=== PATIENT | female | born 1995 | race American Indian/Alaskan Native ===

== ENCOUNTER 2018-05-20 01:45 | Outpatient (CLI) | payer MEDICAID ==
[2018-05-20 02:11] VITALS: BP 117/61
[2018-05-20] MEDS ORDERED: LACTATED RINGERS 500 ML IV ONE (02:20)
[2018-05-20 02:35] LABS: Amorphous Crystals,Urine Few; Bacteria,Urine 1+ /HPF (Negative); Bilirubin,Urine NEG (Negative); Blood,Urine NEG (Negative); Calcium Oxalate Crystals,Urine 1+; Color,Urine Yellow (Yellow); Mucus,Urine FEW /HPF; RBC,Urine < 1.0 /HPF (0.0-6.0)
== END 2018-05-20 04:12 | disposition home or self-care (01) ==
LOC: TRG 01:45
PROVIDERS: ATTEND Obstetrics & Gynecology
DX: O26.893 Other specified pregnancy related conditions, third trimester (principal); R10.9 Unspecified abdominal pain; R53.1 Weakness; Z3A.30 30 weeks gestation of pregnancy
CPT/HCPCS: 59025; 81001

== ENCOUNTER 2018-08-07 23:17 | Outpatient (CLI) | payer MEDICAID ==
[2018-08-08 00:02] VITALS: BP 119/67
[2018-08-08 00:51] LABS: Amorphous Crystals,Urine Few; Bacteria,Urine 1+ /HPF (Negative); Bilirubin,Urine NEG (Negative); Blood,Urine NEG (Negative); Color,Urine Yellow (Yellow); Mucus,Urine FEW /HPF; Protein,Urine <15 mg/dL mg/dL (Negative)
[2018-08-08] MEDS ORDERED: TYLENOL PO ONE (00:57)
== END 2018-08-08 | disposition home or self-care (01) ==
LOC: TRG 23:17
PROVIDERS: ATTEND Obstetrics & Gynecology
DX: O26.893 Other specified pregnancy related conditions, third trimester (principal); R10.9 Unspecified abdominal pain; M54.9 Dorsalgia, unspecified; Z3A.36 36 weeks gestation of pregnancy
CPT/HCPCS: 81001

== ENCOUNTER 2018-08-30 01:14 | Inpatient (IN) | payer MEDICAID ==
[2018-08-30] MEDS ORDERED: NITRATEST PAPER MC ONE (01:43)
--- NOTE | 2018-08-30 02:19 | History and Physical Report ---
History of Present Illness Date of examination: 08/30/18 Date of admission: 08/30/18 02:16 Chief complaint: my water broke History of present illness: Pt presents with c/o of SROM at 0100 of clear fluid with some blood mixed in fluid. 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 Pt has been complicated by being a twin gestation in which there was a demise of twin B in the second trimester. There have been no other complications to date. Past History Past Medical History: no pertinent history Past Surgical History: no surgical history [employer]LECT[employer]UMENT [employer] History: chlamydia, other (see hpi). denies: abnormal PAP smear Family/Genetic History: other (see hpi) Social history: no significant social history, single - Obstetrical History Expected Date of Delivery: 09/05/18 Actual Gestation: 39 Week(s) 1 Day(s) : 1 Medications and Allergies Allergies Allergy/AdvReac Type Severity Reaction Status Date / Time No Known Allergies Allergy Unverified 04/24/13 23:34 Home Medications Medication Instructions Recorded Confirmed Last Taken Type No Known Home Medications [No 05/20/18 08/30/18 Unknown History Reported Home Medications] Review of Systems All systems: negative - Vital Signs Vital signs: Vital Signs Pulse BP 85 134/88 08/30/18 01:34 08/30/18 01:34 Temp Pulse Resp BP Pulse Ox 98.9 F 85 20 134/88 08/30/18 01:37 08/30/18 01:37 08/30/18 01:37 08/30/18 01:37 - Physical Exam Cardiovascular: Normal S1, Normal S2 Lungs: Positive: Normal air movement Abdomen: Positive: normal appearance, soft. Negative: distention, tenderness, g uarding Genitourinary (Female): Positive: normal external genitalia, normal perenium, other. Negative: perineal/vulvar lesions Vagina: Positive: normal moisture - Obstetrical FHR: category 1 Results Result Diagrams: 08/30/18 02:15 All other labs normal. Assessment and Plan - Patient Problems (1) 39 weeks gestation of Current Visit: Yes Status: Acute (2) Twin gestation in third trimester Current Visit: Yes Status: Acute Qualifiers: Multiple gestation type: dichorionic and diamniotic Qualified Code(s): O30.043 - Twin , dichorionic/diamniotic, third trimester Plan to address problem: -demise of twin B in second trimester (3) SROM (spontaneous rupture of membranes) Current Visit: Yes Status: Acute Plan to address problem: -start serial IOL as pt is remote from delivery -d/w the above and risk of c/s for failed IOL. She expressed understanding and questions were addressed and answered.
[2018-08-30] MEDS ORDERED: MINERAL OIL PO PRN (02:24)
[2018-08-30] MEDS ORDERED: XYLOCAINE 2% INFILTRATI ONE (02:24)
[2018-08-30] MEDS ORDERED: BRETHINE SUB-Q PRN (02:24)
[2018-08-30] MEDS ORDERED: BRETHINE IVP PRN (02:24)
[2018-08-30] MEDS ORDERED: PITOCin/NS 20 UNIT/1000ML DRIP 20 UNITS/1,000 ML BAG IV SCH ×3 (03:00→21:11)
[2018-08-30] MEDS ORDERED: PITOCin/NS 30 UNIT/500ML 30 UNITS/500 ML BAG IV SCH ×2 (03:00)
[2018-08-30] MEDS: LACTATED RINGERS 1,000 ML IV SCH ×3 (03:17→08:59)
[2018-08-30] MEDS: SUBLIMAZE IV PRN ×2 (04:14→06:19)
[2018-08-30 04:15] LABS: Hematocrit 34.1 % (30.3-42.9); Hemoglobin 11.4 gm/dl (10.1-14.3); Mean Corpuscular HGB Conc 33 % (30-34); Mean Corpuscular Volume 86 fl (79-97); Platelet Count 242 K/mm3 (140-440); Red Blood Count 3.98 M/mm3 (3.65-5.03); Red Cell Distribution Width 14.3 % (13.2-15.2)
[2018-08-30] MEDS ORDERED: ZOFRAN IV PRN ×3 (08:29→21:11)
[2018-08-30] MEDS ORDERED: NARCAN 2 MG/2 ML IV PRN (08:29)
[2018-08-30] MEDS ORDERED: NUBAIN IV PRN (08:29)
[2018-08-30] MEDS ORDERED: BENADRYL IV PRN (08:29)
--- NOTE | 2018-08-30 08:29 | Anesthesia Consultation ---
Anesthesia Consult and Med Hx Date of service: 08/30/18 - Airway Anesthetic Teeth Evaluation: Good ROM Head & Neck: Adequate Mental/Hyoid Distance: Adequate Mallampati Class: Class II Intubation Access Assessment: Probably Good - Pulmonary Exam CTA: Yes - Cardiac Exam Cardiac Exam: RRR - Pre-Operative Health Status ASA Pre-Surgery Classification: ASA2 Proposed Anesthetic Plan: Epidural - Pulmonary Hx Smoking: No Hx Asthma: No Hx Respiratory Symptoms: No SOB: No COPD: No Home Oxygen Therapy: No Hx Pneumonia: No Hx Sleep Apnea: Yes (undiagnosed) - Cardiovascular System Hx Hypertension: No Hx Coronary Artery Disease: No Hx Heart Attack/AMI: No Hx Angina: No Hx Percutaneous Transluminal Coronary Angioplasty (PTCA): No Hx Cardia Arrhythmia: No Hx Pacemaker: No Hx Internal Defibrillator: No Hx Valvular Heart Disease: No Hx Heart Murmur: No Hx Peripheral Vascular Disease: No - Central Nervous System Hx Neuromuscular Disorder: No Hx Seizures: No CVA: No Hx Back Pain: No Hx Psychiatric Problems: No - Gastrointestinal Hx Ulcer: No Hx Gastroesophageal Reflux Disease: No - Endocrine Hx Renal Disease: No Hx End Stage Renal Disease: No Hx Cirrhosis: No Hx Liver Disease: No Hx Insulin Dependent Diabetes: No Hx Non-Insulin Dependent Diabetes: No Hx Thyroid Disease: No Hx Hypothyroidism: No Hx Hyperthyroidism: No - Hematic Hx Anemia: No Hx Sickle Cell Disease: No - Other Systems Hx Alcohol Use: No Hx Substance Use: No Hx Cancer: No Hx Obesity: Yes
--- NOTE | 2018-08-30 08:48 | Progress Note ---
Assessment and Plan 23 y.o. IUP 39w 1d SROM, resting comfortably in bed post epidural placement. SVE 3/80/-2. Clear fluid noted on exam glove. Patient denies feeling any contractions at this time. Will continue pitocin 2x2 to achieve adequate contraction pattern for labor as fetus allows. May plan for internal monitoring later today. Discussed POC with patient who agrees to proceed. Subjective - Subjective Date of service: 08/30/18 Principal diagnosis: SROM Patient reports: movement normal Objective - Vital Signs Vital Signs: Vital Signs - 12hr 08/30/18 08/30/18 08/30/18 01:34 01:37 02:44 Temperature 98.9 F 97.2 F L Pulse Rate 85 85 Respiratory 20 22 Rate Blood Pressure 134/88 Blood Pressure 134/88 [Left] O2 Sat by Pulse Oximetry 08/30/18 08/30/18 08/30/18 02:55 04:02 04:14 Temperature Pulse Rate 82 77 Respiratory 20 Rate Blood Pressure 121/77 121/60 Blood Pressure [Left] O2 Sat by Pulse Oximetry 08/30/18 08/30/18 08/30/18 04:16 05:31 05:34 Temperature 97.0 F L Pulse Rate 91 H 92 H Respiratory Rate Blood Pressure 137/88 Blood Pressure [Left] O2 Sat by Pulse 99 Oximetry 08/30/18 08/30/18 08/30/18 06:08 06:19 06:32 Temperature 97.1 F L Pulse Rate 85 70 Respiratory 24 24 Rate Blood Pressure 140/73 138/77 Blood Pressure [Left] O2 Sat by Pulse 100 Oximetry 08/30/18 08/30/18 08/30/18 06:49 06:58 07:03 Temperature Pulse Rate 76 108 H Respiratory 20 Rate Blood Pressure Blood Pressure [Left] O2 Sat by Pulse 100 99 Oximetry 08/30/18 08/30/18 08/30/18 07:08 07:13 07:19 Temperature Pulse Rate 88 96 H 89 Respiratory Rate Blood Pressure Blood Pressure [Left] O2 Sat by Pulse 98 100 100 Oximetry 08/30/18 08/30/18 08/30/18 07:24 07:29 07:32 Temperature Pulse Rate 83 100 H 82 Respiratory Rate Blood Pressure 133/74 Blood Pressure [Left] O2 Sat by Pulse 100 100 Oximetry 08/30/18 08/30/1808/30/19 07:34 07:37 07:57 Temperature Pulse Rate 97 H 88 100 H Respiratory Rate Blood Pressure 141/81 150/74 Blood Pressure [Left] O2 Sat by Pulse 100 Oximetry 08/30/18 08/30/18 08/30/18 07:59 08:01 08:03 Temperature Pulse Rate 85 94 H 95 H Respiratory Rate Blood Pressure 135/67 131/62 134/68 Blood Pressure [Left] O2 Sat by Pulse 100 Oximetry 08/30/18 08/30/18 08/30/18 08:04 08:05 08:07 Temperature Pulse Rate 118 H 93 H 76 Respiratory Rate Blood Pressure 139/70 133/75 Blood Pressure [Left] O2 Sat by Pulse 86 Oximetry 08/30/18 08/30/18 08/30/18 08:08 08:09 08:11 Temperature Pulse Rate 106 H 92 H 102 H Respiratory Rate Blood Pressure 135/75 141/79 Blood Pressure [Left] O2 Sat by Pulse 100 Oximetry 08/30/18 08/30/18 08/30/18 08:13 08:17 08:18 Temperature Pulse Rate 85 102 H 97 H Respiratory Rate Blood Pressure 132/71 144/77 Blood Pressure [Left] O2 Sat by Pulse 100 99 Oximetry 08/30/18 08/30/18 08/30/18 08:19 08:22 08:23 Temperature Pulse Rate 102 H 60 78 Respiratory Rate Blood Pressure 128/77 Blood Pressure [Left] O2 Sat by Pulse 72 L 84 Oximetry 08/30/18 08/30/18 08/30/18 08:25 08:27 08:28 Temperature Pulse Rate 83 94 H 96 H Respiratory Rate Blood Pressure 130/67 131/66 Blood Pressure [Left] O2 Sat by Pulse 96 Oximetry 08/30/18 08/30/18 08/30/18 08:29 08:30 08:31 Temperature 97.6 F Pulse Rate 86 78 Respiratory Rate Blood Pressure 135/65 135/65 Blood Pressure [Left] O2 Sat by Pulse Oximetry 08/30/18 08/30/18 08/30/18 08:33 08:35 08:38 Temperature Pulse Rate 82 85 81 Respiratory Rate Blood Pressure 129/66 137/65 Blood Pressure [Left] O2 Sat by Pulse 97 98 Oximetry 08/30/18 08:41 Temperature Pulse Rate 75 Respiratory Rate Blood Pressure Blood Pressure [Left] O2 Sat by Pulse 94 Oximetry - Exam Breasts: normal Cardiovascular: Regular rate, Normal S1, Normal S2 Lungs: Clear to auscultation Abdomen: Present: normal appearance, soft. Absent: distention, tenderness Vulva: both: normal Uterus: Present: normal FHR: auscultation normal Uterine Contraction Monitor Mode: External Cervical Dilatation: 3 Cervical Effacement Percentage: 80 station: -2 Uterine Contraction Frequency (min): UTD on TOCO Uterine Tone Measurement Phase: Contraction Uterine Contraction Intensity: Mild Extremities: normal - Labs Labs: Laboratory Results - last 24 hr 08/30/18 08/30/18 02:15 02:15 WBC 9.1 RBC 3.98 Hgb 11.4 Hct 34.1 MCV 86 MCH 29 MCHC 33 RDW 14.3 Plt Count 242 Blood Type B POSITIVE Antibody Screen Negative
[2018-08-30] MEDS: fentaNYL-BUPIV 2 MCG/ML-0.125% 200 MCG/100 ML BAG EPIDURAL SCH ×2 (09:00→16:34)
--- NOTE | 2018-08-30 11:15 | Progress Note ---
Assessment and Plan Amnioinfusion started, will restart Pitocin - Patient Problems (1) 39 weeks gestation of Current Visit: Yes Status: Acute (2) SROM (spontaneous rupture of membranes) Current Visit: Yes Status: Acute (3) Twin gestation in third trimester Current Visit: Yes Status: Acute Qualifiers: Multiple gestation type: dichorionic and diamniotic Qualified Code(s): O30.043 - Twin , dichorionic/diamniotic, third trimester Subjective - Subjective Date of service: 08/30/18 Principal diagnosis: SROM Interval history: IUP@39weeks, twin gestation with demise twin B ~16wks, SROM ,labor Patient reports: movement normal Objective - Vital Signs Vital Signs: Vital Signs - 12hr 08/30/18 08/30/18 08/30/18 01:34 01:37 02:44 Temperature 98.9 F 97.2 F L Pulse Rate 85 85 Respiratory 20 22 Rate Blood Pressure 134/88 Blood Pressure 134/88 [Left] O2 Sat by Pulse Oximetry 08/30/18 08/30/18 08/30/18 02:55 04:02 04:14 Temperature Pulse Rate 82 77 Respiratory 20 Rate Blood Pressure 121/77 121/60 Blood Pressure [Left] O2 Sat by Pulse Oximetry 08/30/18 08/30/18 08/30/18 04:16 05:31 05:34 Temperature 97.0 F L Pulse Rate 91 H 92 H Respiratory Rate Blood Pressure 137/88 Blood Pressure [Left] O2 Sat by Pulse 99 Oximetry 08/30/18 08/30/18 08/30/18 06:08 06:19 06:32 Temperature 97.1 F L Pulse Rate 85 70 Respiratory 24 24 Rate Blood Pressure 140/73 138/77 Blood Pressure [Left] O2 Sat by Pulse 100 Oximetry 08/30/18 08/30/18 08/30/18 06:49 06:58 07:03 Temperature Pulse Rate 76 108 H Respiratory 20 Rate Blood Pressure Blood Pressure [Left] O2 Sat by Pulse 100 99 Oximetry 08/30/18 08/30/18 08/30/18 07:08 07:13 07:19 Temperature Pulse Rate 88 96 H 89 Respiratory Rate Blood Pressure Blood Pressure [Left] O2 Sat by Pulse 98 100 100 Oximetry 08/30/18 08/30/18 08/30/18 07:24 07:29 07:32 Temperature Pulse Rate 83 100 H 82 Respiratory Rate Blood Pressure 133/74 Blood Pressure [Left] O2 Sat by Pulse 100 100 Oximetry 08/30/18 08/30/18 08/30/18 07:34 07:37 07:57 Temperature Pulse Rate 97 H 88 100 H Respiratory Rate Blood Pressure 141/81 150/74 Blood Pressure [Left] O2 Sat by Pulse 100 Oximetry 08/30/18 08/30/18 08/30/18 07:59 08:01 08:03 Temperature Pulse Rate 85 94 H 95 H Respiratory Rate Blood Pressure 135/67 131/62 134/68 Blood Pressure [Left] O2 Sat by Pulse 100 Oximetry 08/30/18 08/30/18 08/30/18 08:04 08:05 08:07 Temperature Pulse Rate 118 H 93 H 76 Respiratory Rate Blood Pressure 139/70 133/75 Blood Pressure [Left] O2 Sat by Pulse 86 Oximetry 08/30/18 08/30/18 08/30/18 08:08 08:09 08:11 Temperature Pulse Rate 106 H 92 H 102 H Respiratory Rate Blood Pressure 135/75 141/79 Blood Pressure [Left] O2 Sat by Pulse 100 Oximetry 08/30/18 08/30/18 08/30/18 08:13 08:17 08:18 Temperature Pulse Rate 85 102 H 97 H Respiratory Rate Blood Pressure 132/71 144/77 Blood Pressure [Left] O2 Sat by Pulse 100 99 Oximetry 08/30/18 08/30/18 08/30/18 08:19 08:22 08:23 Temperature Pulse Rate 102 H 60 78 Respiratory Rate Blood Pressure 128/77 Blood Pressure [Left] O2 Sat by Pulse 72 L 84 Oximetry 08/30/18 08/30/18 08/30/18 08:25 08:27 08:28 Temperature Pulse Rate 83 94 H 96 H Respiratory Rate Blood Pressure 130/67 131/66 Blood Pressure [Left] O2 Sat by Pulse 96 Oximetry 08/30/18 08/30/18 08/30/18 08:29 08:30 08:31 Temperature 97.6 F Pulse Rate 86 78 Respiratory Rate Blood Pressure 135/65 135/65 Blood Pressure [Left] O2 Sat by Pulse Oximetry 08/30/18 08/30/18 08/30/18 08:33 08:35 08:38 Temperature Pulse Rate 82 85 81 Respiratory Rate Blood Pressure 129/66 137/65 Blood Pressure [Left] O2 Sat by Pulse 97 98 Oximetry 08/30/18 08/30/18 08/30/18 08:41 08:50 09:05 Temperature Pulse Rate 75 84 76 Respiratory Rate Blood Pressure 132/66 139/71 Blood Pressure [Left] O2 Sat by Pulse 94 Oximetry 08/30/18 08/30/18 08/30/18 09:20 09:35 09:51 Temperature Pulse Rate 95 H 92 H 90 Respiratory Rate Blood Pressure 123/73 116/59 127/72 Blood Pressure [Left] O2 Sat by Pulse Oximetry 08/30/18 08/30/18 08/30/18 10:05 10:17 10:20 Temperature Pulse Rate 83 80 80 Respiratory Rate Blood Pressure 126/69 111/55 Blood Pressure [Left] O2 Sat by Pulse 100 Oximetry 08/30/18 08/30/18 08/30/18 10:22 10:27 10:30 Temperature Pulse Rate 83 81 85 Respiratory Rate Blood Pressure 116/66 Blood Pressure [Left] O2 Sat by Pulse 98 98 Oximetry 08/30/18 08/30/18 08/30/18 10:32 10:36 10:37 Temperature Pulse Rate 82 80 85 Respiratory Rate Blood Pressure 109/57 Blood Pressure [Left] O2 Sat by Pulse 100 100 Oximetry 08/30/18 08/30/18 08/30/18 10:42 10:47 10:50 Temperature Pulse Rate 85 83 86 Respiratory Rate Blood Pressure 136/74 138/73 Blood Pressure [Left] O2 Sat by Pulse 100 100 Oximetry 08/30/18 08/30/18 08/30/18 10:52 10:57 11:02 Temperature Pulse Rate 79 101 H 80 Respiratory Rate Blood Pressure Blood Pressure [Left] O2 Sat by Pulse 100 100 100 Oximetry 08/30/18 08/30/18 08/30/18 11:05 11:07 11:09 Temperature Pulse Rate 80 83 94 H Respiratory Rate Blood Pressure 125/70 Blood Pressure [Left] O2 Sat by Pulse 100 90 Oximetry - Exam Lungs: Normal air movement Abdomen: Present: soft, other (obese). Absent: tenderness Vulva: both: normal Uterus: Present: fundal height above umbilicus. Absent: tenderness FHR: category 2 Uterine Contraction Monitor Mode: Internal (FSE/IUPC placed with difficulty after the preocedure was explained and verbal consent given) Cervical Dilatation: 4 Cervical Effacement Percentage: 80 station: 0 Uterine Contraction Frequency (min): 2-3 Uterine Contraction Pattern: Regular - Labs Labs: Laboratory Results - last 24 hr 08/30/18 08/30/18 02:15 02:15 WBC 9.1 RBC 3.98 Hgb 11.4 Hct 34.1 MCV 86 MCH 29 MCHC 33 RDW 14.3 Plt Count 242 Blood Type B POSITIVE Antibody Screen Negative
[2018-08-30] MEDS ORDERED: NACL 0.9% 1000 ML 1,000 ML ONE (11:25)
[2018-08-30] MEDS ORDERED: NACL 0.9% 1000 ML VG ONE (12:00)
--- NOTE | 2018-08-30 13:26 | Event Note ---
Date: 08/30/18 SVE unchanged from prior exam. IUPC and FSE in place. Patient remains comfortable from epidural, no complaints. Category 1 tracing at this time. Will continue to increase pitocin as ordered.
--- NOTE | 2018-08-30 16:55 | Event Note ---
Date: 08/30/18 recurrent variable decelerations noted. MVUs 100-150, SVE 6/100/0. Pitocin discontinued at this time, LR fluid bolus initiated. Left lateral with right leg in stirrup. O2 via non rebreather applied. Dr. Escobar notified of patient current status, en route to unit for further assessment.
[2018-08-30] MEDS ORDERED: PEPCID IV SCH (17:10)
[2018-08-30] MEDS ORDERED: BICITRA PO ONE (17:10)
[2018-08-30] MEDS ORDERED: REGLAN IV SCH (17:10)
[2018-08-30] MEDS ORDERED: XYLOCAINE 2%/ EPI 1:200,000 INFILTRATI ONE (17:22)
[2018-08-30] MEDS ORDERED: BICITRA ONE (17:25)
[2018-08-30] MEDS ORDERED: NACL 0.9% IR ONE (17:30)
[2018-08-30] MEDS ORDERED: SUBLIMAZE ONE (17:31)
[2018-08-30] MEDS ORDERED: WATER FOR IRRIG STERILE IR ONE (17:53)
[2018-08-30] MEDS ORDERED: DILAUDID ONE (17:54)
[2018-08-30] MEDS ORDERED: ANCEF/NS 1 GM/50 ML 1 GM/50 ML BAG IV NR (18:00)
[2018-08-30] MEDS ORDERED: ANCEF/STERILE WATER 2 GM/20 ML 2 GM/20 ML SYRINGE IV NR (18:00)
[2018-08-30] MEDS ORDERED: CYTOTEC ONE (18:00)
[2018-08-30] MEDS ORDERED: LACTATED RINGERS 1,000 ML IV SCH (18:00)
[2018-08-30] MEDS ORDERED: HEMABATE IM ONE (18:00)
[2018-08-30] MEDS ORDERED: METHERGINE IM ONE (18:01)
[2018-08-30] MEDS ORDERED: TORADOL ONE (18:13)
--- NOTE | 2018-08-30 18:48 | Operative Report ---
Operative Report Operative Report: Date: Preoperative diagnosis: 1. Intrauterine at 39 weeks 2. Spontaneous rupture of membranes 3. Nonreassuring heart rate tracing 4. BMI 49 5. Twin gestation with demise of twin B at approximately 16 weeks diamniotic dichorionic Postoperative diagnosis: 1. Intrauterine at 39 weeks 2. Spontaneous rupture of membranes 3. Nonreassuring heart rate tracing 4. BMI 49 5. Twin gestation with demise of twin B at approximately 16 weeks diamniotic dichorionic Procedure: Low uterine transverse incision for delivery Surgeon: Annmarie Escobar MD Datastage Developer: Kamila Boyd Anesthesia: Epidural Anesthesiologist: Dr. Giron Estimated blood loss: 650 mL Urine out: 200 mL Findings: Live born female . Weight 6 lbs. 10 oz. Apgars 8 at 1 minute and 9 at 5 minutes. Uterus grossly normal, tubes grossly normal, ovaries grossly normal. Nuchal and body cord. Procedure: After risk, benefits, complications, consequences and alternatives for this procedure were discussed with patient and consents were reviewed and signed, she was taken to the OR where epidural anesthesia was bolused. She was then placed in the left lateral tilt position, and prepped and draped in the usual sterile fashion. Timeout was performed, and an appropriate level of anesthesia was noted, a Pfannenstiel incision was made and extended to the fascia which was incised and extended in the lateral directions. The over lying fascia was sharply dissected away from the underlying rectus muscles in the superior and inferior directions. The midline was entered bluntly. The vesicouterine fold was incised and with blunt dissection the bladder flap was created. A transverse incision was made in the lower uterine segment and extended in superiolateral direction with finger fractionation. Clear fluid was noted. The was delivered from cephalic position. Mouth and nose were bulb suctioned. Spontaneous cry and excellent tone were noted. Cord was doubly clamped and cut. The was given to /resuscitation team present. The placenta was manually extracted. The uterus was then exteriorized and cleared of any further products of conception or placental tissue. The incision was reapproximated using 0 Vicryl in a running interlocking stitch. Grossly normal uterus, tubes and ovaries were noted. Once hemostasis was noted, the uterus was allowed back into the pelvic cavity. The pelvis was irrigated with warm normal saline. Again hemostasis was noted . Surgicel applied for further hemostasis. Interceed was then placed to prevent adhesions. Then attention was turned to the rectus muscles. The rectus muscles reapproximated using 0 Vicryl in a simple interrupted stitch x 3. Once hemostasis was noted, the fascia was reapproximated using 0 Vicryl running stitch fashion. Once hemostasis was noted skin incision was reapproximated using 4-0 Vicryl on a Francisco needle in a subcuticular manner. Counts were correct 3. Patient tolerated procedure well state recovery room in stable condition.
[2018-08-30] MEDS ORDERED: PHENERGAN PR PRN ×2 (20:38→21:11)
[2018-08-30] MEDS ORDERED: PHENERGAN PO PRN (20:38)
[2018-08-30] MEDS ORDERED: DILAUDID IV PRN (20:38)
[2018-08-30] MEDS ORDERED: SODIUM CHLORIDE FLUSH SYRINGE 10 ML IV NR ×2 (21:00→21:11)
[2018-08-30] MEDS ORDERED: fentaNYL-BUPIV 2 MCG/ML-0.125% 200 MCG/100 ML BAG EPIDURAL SCH (21:00)
[2018-08-30] MEDS ORDERED: METHERGINE IM PRN (21:11)
[2018-08-30] MEDS ORDERED: TUCKS PAD TP PRN (21:11)
[2018-08-30] MEDS ORDERED: MORPHINE IV PRN ×2 (21:11)
[2018-08-30] MEDS ORDERED: CYTOTEC PR PRN (21:11)
[2018-08-30] MEDS ORDERED: NARCAN 0.4 MG/1 ML IV PRN (21:11)
[2018-08-30] MEDS ORDERED: LANSINOH TP PRN (21:11)
[2018-08-30] MEDS ORDERED: HEMABATE IM PRN (21:11)
[2018-08-30] MEDS ORDERED: TYLENOL PO PRN (21:11)
[2018-08-30] MEDS ORDERED: D5LR 1,000 ML IV SCH (21:11)
[2018-08-30] MEDS ORDERED: MILK OF MAGNESIA PO PRN (22:00)
[2018-08-30] MEDS ORDERED: TORADOL IV PRN (22:00)
[2018-08-31] MEDS ORDERED: ceFAZolin 2 GM in NACL 0.9% 100 ML IV SCH (02:00)
[2018-08-31 05:50] LABS: Hematocrit 30.6 % (30.3-42.9); Hemoglobin 10.1 gm/dl (10.1-14.3)
[2018-08-31] MEDS ORDERED: BOOSTRIX IM ONE (06:00)
--- NOTE | 2018-08-31 07:42 | Progress Note ---
Assessment and Plan Pt w/o complaint VSS ff below umb Lochia small Dressing D&I to be removed this AM H&H 06/07 drop r/t blood loss from c/s Pt is w/o s/sx of anemia Doing well s/p c/s P: continue with pathway Advance as tolerated. Subjective - Subjective Date of service: 08/31/18 (pt OOB ambulating in room) Principal diagnosis: Day # 1 s/p section Patient reports: appetite normal, voiding normally, pain well controlled, ambulating normally [place]: doing well Objective - Vital Signs Latest vital signs: Vital Signs Temp Pulse Resp BP BP Pulse Ox 08/31/18 04:00 98.2 F 74 20 119/66 08/31/18 00:00 98.2 F 99 H 20 126/83 08/30/18 20:15 98.2 F 105 H 18 130/82 08/30/18 19:50 99.3 F 86 20 126/67 100 08/30/18 19:00 98.6 F 92 H 17 124/76 100 08/30/18 18:55 98.6 F 94 H 18 128/70 100 08/30/18 18:44 98.6 F 108 H 16 133/75 100 08/30/18 17:17 102 H 100 08/30/18 17:06 102 H 135/84 08/30/18 16:50 94 H 138/83 08/30/18 16:35 88 132/80 08/30/18 16:22 101 H 115/75 08/30/18 16:05 108 H 120/76 08/30/18 15:51 99 H 126/77 08/30/18 15:36 104 H 130/70 08/30/18 15:20 104 H 118/79 08/30/18 15:05 91 H 125/77 08/30/18 14:50 105 H 120/78 08/30/18 14:36 93 H 122/79 08/30/18 14:21 88 112/73 08/30/18 14:05 94 H 121/76 08/30/18 13:50 94 H 129/76 08/30/18 13:36 102 H 130/78 08/30/18 13:21 100 H 128/76 08/30/18 13:06 84 121/76 08/30/18 12:52 74 125/70 01/22/19 12:35 89 121/73 08/30/18 12:23 114 H 100 08/30/18 12:21 85 118/66 08/30/18 12:18 84 100 08/30/18 12:13 80 100 08/30/18 12:11 50 L 65 L 08/30/18 12:08 79 100 08/30/18 12:05 72 113/51 08/30/18 12:03 83 100 08/30/18 12:00 97.4 F L 08/30/18 11:58 74 100 08/30/18 11:53 72 100 08/30/18 11:52 73 114/58 08/30/18 11:48 96 H 100 08/30/18 11:43 88 99 08/30/18 11:39 84 77 L 08/30/18 11:38 79 100 08/30/18 11:36 78 138/83 08/30/18 11:33 85 100 08/30/18 11:28 78 100 08/30/18 11:27 81 118/55 08/30/18 11:25 81 82 L 08/30/18 11:22 79 100 08/30/18 11:20 72 118/59 08/30/18 11:17 77 100 08/30/18 11:12 76 100 08/30/18 11:09 94 H 90 08/30/18 11:07 83 100 08/30/18 11:05 80 125/70 08/30/18 11:02 80 100 08/30/18 10:57 101 H 100 08/30/18 10:52 79 100 08/30/18 10:50 86 138/73 08/30/18 10:47 83 100 08/30/18 10:42 85 136/74 100 08/30/18 10:37 85 100 08/30/18 10:36 80 109/57 08/30/18 10:32 82 100 08/30/18 10:30 85 116/66 08/30/18 10:27 81 98 08/30/18 10:22 83 98 08/30/18 10:20 80 111/55 08/30/18 10:17 80 100 08/30/18 10:05 83 126/69 08/30/18 09:51 90 127/72 08/30/18 09:35 92 H 116/59 08/30/18 09:20 95 H 123/73 08/30/18 09:05 76 139/71 08/30/18 08:50 84 132/66 08/30/18 08:41 75 94 08/30/18 08:38 81 98 08/30/18 08:35 85 137/65 08/30/18 08:33 82 129/66 97 08/30/18 08:31 78 135/65 08/30/18 08:30 97.6 F 08/30/18 08:29 86 135/65 08/30/18 08:28 96 H 96 08/30/18 08:27 94 H 131/66 08/30/18 08:25 83 130/67 08/30/18 08:23 78 84 08/30/18 08:22 60 72 L 08/30/18 08:19 102 H 128/77 08/30/18 08:18 97 H 99 08/30/18 08:17 102 H 144/77 08/30/18 08:13 85 132/71 100 08/30/18 08:11 102 H 141/79 08/30/18 08:09 92 H 135/75 08/30/18 08:08 106 H 100 08/30/18 08:07 76 133/75 08/30/18 08:05 93 H 139/70 08/30/18 08:04 118 H 86 08/30/18 08:03 95 H 134/68 100 08/30/18 08:01 94 H 131/62 08/30/18 07:59 85 135/67 08/30/18 07:57 100 H 150/74 Intake and Output 08/30/18 08/31/18 08/31/18 22:59 06:59 14:59 Intake Total 1505.167 360 Output Total 200 1100 Balance 1305.167 -740 Intake: IV 1505.167 PITOCin/NS 30 UNIT/500ML 5.167 30 units In 500 ml @ 2 mls/hr IV TITR ISAIAS Rx#: [id number] Oral 360 Output: Urine 200 1100 Indwelling Catheter 1100 Other: Total, Intake Amount 120 Total, Output Amount 500 Estimated Blood Loss 650 - Exam Breasts: Present: normal Cardiovascular: Present: Regular rate Lungs: Present: Normal air movement Abdomen: Present: normal appearance, soft, normal bowel sounds Extremities: Present: normal Incision: Present: normal, dry, intact, dressed (to be removed)
[2018-08-31] MEDS: PERCOCET 5/325 PO PRN ×3 (10:42→22:32)
[2018-08-31] MEDS: IBUPROFEN PO PRN ×2 (10:42→17:02)
[2018-08-31] MEDS: MYLICON PO PRN (12:40)
[2018-09-01] MEDS: IBUPROFEN PO PRN (00:35)
[2018-09-01] MEDS: PERCOCET 5/325 PO PRN (06:17)
[2018-09-01] MEDS: MYLICON PO PRN (06:17)
--- NOTE | 2018-09-01 07:14 | Event Note ---
Date: 08/31/18 (late entry) Received call from Isabella DOSS that pt had increased blood on her dressing. Dressing removed. Drainage is sera sanguineous in appearance. Pt encouraged to shower. Will remove and apply fresh steri strips after shower. Will continue to monitor made aware of findings
--- NOTE | 2018-09-01 07:35 | Progress Note ---
Assessment and Plan - Patient Problems (1) 39 weeks gestation of Current Visit: Yes Status: Resolved (2) Twin gestation in third trimester Current Visit: Yes Status: Resolved Qualifiers: Multiple gestation type: dichorionic and diamniotic Qualified Code(s): O30.043 - Twin , dichorionic/diamniotic, third trimester (3) SROM (spontaneous rupture of membranes) Current Visit: Yes Status: Resolved (4) S/P primary low transverse Current Visit: Yes Status: Acute Plan to address problem: -routine post op care -d/c this pm or Am pending pt desire and if she continues to do well. Subjective - Subjective Date of service: 09/01/18 Principal diagnosis: Day # 2 s/p section Interval history: Steristips were not removed last pm but will be replaced this am. Pt reports no drainage from the incision and she states only dressing was removed yesterday and strips were not replaced. Incision does not show any bleeding or drainage but old strips from previous drainage are peeling off. No fluid could be expressed from the incision and skin edges are approximated and intact. Pt states pain is well controlled and she is feeling well. Patient reports: appetite normal, voiding normally, pain well controlled, flatus , ambulating normally, no dizzy ambulation : doing well, bottle feeding Objective - Vital Signs Latest vital signs: Vital Signs Temp Pulse Resp BP Pulse Ox 08/31/18 23:56 98.5 F 84 18 116/66 98 08/31/18 12:39 15 08/31/18 12:02 99.3 F 98 H 20 117/80 100 Intake and Output 08/31/18 09/01/18 09/01/18 22:59 06:59 14:59 Intake Total 360 Balance 360 Intake: Intake, Free Water 360 Other: # Voids Void 1 - Exam Lungs: Present: Normal air movement Abdomen: Present: normal appearance, soft. Absent: distention, tenderness, guarding Uterus: Present: normal, firm, fundal height below umbilicus. Absent: bogginess, tenderness Deep Tendon Reflex Grade: Normal +2 Incision: Present: normal, dry, intact (see above )
--- NOTE | 2018-09-01 08:16 | Discharge Summary ---
Providers - Providers Date of Admission: 08/30/18 02:16 Date of discharge: 09/01/18 (pt desires d/c home) Attending physician: MIKE ORTIZ 08/30/18 21:11 Consult to [facility]igher [CONS] Routine Reason For Exam: Primary care physician: MIKE ORTIZ Hospitalization Reason for admission: rupture of membranes Delivery: Procedure: section, primary low transverse Incision: normal, dry, intact Other procedures: none complications: none Discharge diagnosis: IUP at term delivered baby: female Pertinent studies: postop H&H .09/07.6 Condition at discharge: Good Disposition: DC-30 STILL A PATIENT - Discharge Diagnoses (1) S/P primary low transverse Status: Acute Plan - Discharge Medications Prescriptions: Ibuprofen [Motrin 800 MG tab] 800 mg PO TID PRN #30 tablet PRN Reason: Pain oxyCODONE /ACETAMINOPHEN [Percocet 5/325 mg] 1 - 2 tab PO Q4HR PRN #30 tablet PRN Reason: Pain - Provider Discharge Summary Activity: routine, no sex for 6 weeks, no heavy lifting 4 weeks, no strenuous exercise Diet: routine Instructions: routine Additional instructions: [] Smoking cessation referral if applicable(refer to patient education folder for contact #) [] Refer to [facility]'s [facility] Booklet Call your doctor immediately for: * Fever > 100.5 * Heavy vaginal bleeding ( >1 pad per hour) * Severe persistent headache * Shortness of breath * Reddened, hot, painful area to leg or breast * Drainage or odor from incision. * Keep incision clean and dry at all times and follow doctor's instructions regarding bathing/showering - Follow up plan Follow up: MIKE ORTIZ MD [Primary Care Provider] - 7 Days (Congratulations!! Please call [phone] to schedule your postop incision check in 1 week. keep your incision clean and dry. Call for any questions or concerns. ) Forms: [facility] Discharge Summary
[2018-09-01 14:15] VITALS: BP 132/70
== END 2018-09-01 15:25 | disposition home or self-care (01) | DRG 765 ==
LOC: TRG 01:14 → LD 02:16 → TRG 02:16 → APU 17:37 → OB 19:51
PROVIDERS: ADMIT Obstetrics & Gynecology; ATTEND Obstetrics & Gynecology
PROC: 10D00Z1 Extraction of Products of Conception, Low, Open Approach (ICD-10-PCS; principal; 2018-08-30)
PROC: 10H07YZ Insertion of Other Device into Products of Conception, Via Natural or Artificial Opening (ICD-10-PCS; 2018-08-30)
DX: O76 Abnormality in fetal heart rate and rhythm complicating labor and delivery (principal); O30.043 Twin pregnancy, dichorionic/diamniotic, third trimester; O99.52 Diseases of the respiratory system complicating childbirth; G47.30 Sleep apnea, unspecified; Z3A.39 39 weeks gestation of pregnancy; Z71.3 Dietary counseling and surveillance; Z37.3 Twins, one liveborn and one stillborn
CPT/HCPCS: 36415; 85014; 85018; 85027; 86592; 86850; 86900; 86901; 88307; 90471; G0378; C1765; J0690; J1170; J1885; J2210; J2270; J2590; J2765; J3010; J7030; J7120; J7121

== ENCOUNTER 2019-12-11 03:41 | Emergency (ER) | payer SELFPAY ==
[2019-12-11 03:46] VITALS: BP 155/95
[2019-12-11] MEDS ORDERED: FAMOTIDINE 20 MG/2 ML INJ IV ONE (04:05)
[2019-12-11] MEDS ORDERED: MORPHINE 4 MG/1 ML INJ IV ONE (04:05)
[2019-12-11] MEDS ORDERED: ONDANSETRON 4 MG/2 ML INJ IV ONE (04:05)
[2019-12-11] MEDS ORDERED: SODIUM CHLORIDE 0.9% 1000 ML 1,000 ML IV ONE (04:07)
[2019-12-11 04:31] LABS: Amorphous Crystals,Urine Few; Bacteria,Urine 1+ /HPF (Negative); Bilirubin,Urine NEG (Negative); Blood,Urine NEG (Negative); Color,Urine Yellow (Yellow); Mucus,Urine 3+ /HPF; Protein,Urine <15 mg/dL mg/dL (Negative)
[2019-12-11 04:35] LABS: Basophils % (Auto) 0.2 % (0.0-1.8); Eosinophils # (Auto) 0.1 K/mm3 (0.0-0.4); Eosinophils % (Auto) 0.7 % (0.0-4.3); Hematocrit 35.9 % (30.3-42.9); Hemoglobin 11.6 gm/dl (10.1-14.3); Lymphocytes # (Auto) 2.5 K/mm3 (1.2-5.4); Lymphocytes % (Auto) 20.5 % (13.4-35.0); Mean Corpuscular HGB Conc 32 % (30-34); Mean Corpuscular Volume 83 fl (79-97); Monocytes # (Auto) 0.9 K/mm3 (0.0-0.8); Monocytes % (Auto) 7.3 % (0.0-7.3); Platelet Count 357 K/mm3 (140-440); Red Blood Count 4.32 M/mm3 (3.65-5.03); Red Cell Distribution Width 15.1 % (13.2-15.2)
[2019-12-11 04:47] LABS: Alanine Aminotransferase 36 units/L (7-56); Albumin 3.8 g/dL (3.9-5); BUN/Creatinine Ratio 8; Blood Urea Nitrogen 7 mg/dL (7-17); Calcium 9.4 mg/dL (8.4-10.2); Hemolysis Index 43
--- NOTE | 2019-12-11 05:17 | Emergency Department Report ---
<ONELIA ANGUIANO - Last Filed: 12/11/19 07:09> ED Abdominal Pain HPI - General Chief Complaint: Abdominal Pain Stated Complaint: ABD PAIN Source: patient Mode of arrival: Wheelchair Limitations: No Limitations - History of Present Illness Initial Comments: Patient is a A0 24-year-old -[place] female with no past medical history who presents to the ED with acute onset persistent severe epigastric pain with intractable nausea and vomiting for the last 2 hours. Patient states that she was asleep when she woke up suddenly with severe epigastric pain followed by intractable nausea and vomiting. Patient denies diarrhea, fever, chills, dizziness, syncope, chest pain, shortness of breath, sore throat, dysuria, urinary frequency and urgency, vaginal bleeding, vaginal discharge, low back pain, cough or hematemesis or hematochezia. MD Complaint: abdominal pain, other (nausea and vomiting) -: Sudden, hour(s) (2) Location: epigastric Radiation: none Migration to: no migration Severity: severe Severity scale (0 -10): 8 Quality: cramping, aching, sharp Consistency: constant Improves With: nothing Worsens With: vomiting Associated Symptoms: denies other symptoms, nausea, vomiting, anorexia. denies: diarrhea, fever, constipation, dysuria, hematemesis, hematochezia, melena - Related Data LMP Date: 11/30/19 Previous Rx's Medication Instructions Recorded Last Taken Type Ibuprofen [Motrin 800 MG tab] 800 mg PO TID PRN #30 tablet 08/30/18 Unknown Rx oxyCODONE /ACETAMINOPHEN [Percocet 1 - 2 tab PO Q4HR PRN #30 tablet 08/30/18 Unknown Rx 5/325 mg] Dicyclomine [Bentyl] 20 mg PO Q6H PRN #30 tablet 12/11/19 Unknown Rx Famotidine [Pepcid] 20 mg PO Q12H #60 tablet 12/11/19 Unknown Rx Ondansetron [Zofran Odt] 4 mg PO Q6HR PRN #20 tab.rapdis 12/11/19 Unknown Rx Allergies Allergy/AdvReac Type Severity Reaction Status Date / Time No Known Allergies Allergy Unverified 04/24/13 23:34 ED Review of Systems Constitutional: denies: chills, fever Eyes: denies: eye pain, eye discharge, vision change ENT: denies: ear pain, throat pain Respiratory: denies: cough, shortness of breath, wheezing Cardiovascular: denies: chest pain, palpitations Endocrine: no symptoms reported Gastrointestinal: abdominal pain (epigastric ), nausea, vomiting. denies: diarrhea Genitourinary: denies: urgency, dysuria, discharge Musculoskeletal: denies: back pain, joint swelling, arthralgia Skin: denies: rash, lesions Neurological: denies: headache, weakness, paresthesias Psychiatric: denies: anxiety, depression Hematological/Lymphatic: denies: easy bleeding, easy bruising ED Past Medical Hx - Past Medical History Previous Medical History?: No Hx Hypertension: No Hx Heart Attack/AMI: No Hx Diabetes: No Hx Deep Vein Thrombosis: No Hx Liver Disease: No Hx Renal Disease: No Hx Sickle Cell Disease: No Hx Seizures: No Hx Asthma: No Hx COPD: No Hx HIV: No - Surgical History Past Surgical History?: No Hx Pacemaker: No Hx Internal Defibrillator: No - Social History Smoking Status: Never Smoker Substance Use Type: None - Medications Home Medications: Home Medications Medication Instructions Recorded Confirmed Last Taken Type Ibuprofen [Motrin 800 MG tab] 800 mg PO TID PRN #30 tablet 08/30/18 Unknown Rx oxyCODONE /ACETAMINOPHEN [Percocet 1 - 2 tab PO Q4HR PRN #30 tablet 08/30/18 Unknown Rx 5/325 mg] Dicyclomine [Bentyl] 20 mg PO Q6H PRN #30 tablet 12/11/19 Unknown Rx Famotidine [Pepcid] 20 mg PO Q12H #60 tablet 12/11/19 Unknown Rx Ondansetron [Zofran Odt] 4 mg PO Q6HR PRN #20 tab.rapdis 12/11/19 Unknown Rx ED Physical Exam - General Limitations: No Limitations General appearance: alert, in no apparent distress - Head Head exam: Present: atraumatic, normocephalic, normal inspection - Eye Eye exam: Present: normal appearance, PERRL, EOMI Pupils: Present: normal accommodation - ENT ENT exam: Present: normal exam, normal orophraynx, mucous membranes moist, TM's normal bilaterally, normal external ear exam - Neck Neck exam: Present: normal inspection, full ROM - Respiratory Respiratory exam: Present: normal lung sounds bilaterally. Absent: respiratory distress, wheezes, rales, rhonchi, stridor, chest wall tenderness, accessory muscle use, decreased breath sounds - Cardiovascular Cardiovascular Exam: Present: normal rhythm, tachycardia, normal heart sounds. Absent: systolic murmur, diastolic murmur, rubs, gallop - GI/Abdominal GI/Abdominal exam: Present: soft, tenderness (palpable epigastric tenderness with no guarding), normal bowel sounds. Absent: guarding, rebound, hyperactive bowel sounds, hypoactive bowel sounds, organomegaly - Extremities Exam Extremities exam: Present: normal inspection, full ROM, normal capillary refill - Back Exam Back exam: Present: normal inspection, full ROM. Absent: tenderness, CVA tenderness (R), CVA tenderness (L), muscle spasm, paraspinal tenderness - Neurological Exam Neurological exam: Present: alert, oriented X3, CN II-XII intact, normal gait, reflexes normal - Psychiatric Psychiatric exam: Present: normal affect, normal mood - Skin Skin exam: Present: warm, dry, intact, normal color. Absent: rash ED Medical Decision Making - Lab Data Result diagrams: 12/11/19 04:01 12/11/19 04:01 - Radiology Data Findings [facility] [address] [place] [address] Cat Scan Report Signed Patient: RELL RHODES MR#: [id number] : 1995 Acct:[id number] Age/Sex: 24 / F ADM Date: 12/11/19 Loc: ED Attending Dr: Ordering Physician: RICK SAHU Date of Service: 12/11/19 Procedure(s): CT abdomen pelvis w con Accession Number(s): [id number] cc: RICK SAHU CT abdomen pelvis w con INDICATION: Abdominal pain. TECHNIQUE: All CT scans at this location are performed using the following dose modulation technique: Automated exposure control. CONTRAST: Omnipaque 300, 100 cc IV injection. COMPARISON: None available. CT ABDOMEN: The parenchymal organs are unremarkable in appearance. Negative for abdominal mass, fluid or inflammation. The bowel is not dilated or thickened. CT PELVIS: The uterus contains an IUD. The right ovary is large measuring 5.5 cm. Negative for pelvic fluid collection. A small amount of free fluid is noted deep within the pelvis. IMPRESSION: Prominent right ovary is nonspecific. This may represent a ruptured cyst in the setting of free fluid. Signer Name: Jovanny Hernandez MD Signed: 12/11/2019 5:54 AM Workstation Name: [id number] Transcribed By: ES Dictated By: Jovanny Hernandez MD Electronically Authenticated By: Jovanny Hernandez MD Signed Date/Time: 12/11/19 0554 DD/ 0549 TD/TT: - Medical Decision Making This is a A0 24-year-old -[place] female with no past medical hist ory who presents to the ED with acute onset persistent severe epigastric pain with intractable nausea and vomiting for the last 2 hours. Patient states that she was asleep when she woke up suddenly with severe epigastric pain followed by intractable nausea and vomiting. In the ED, patient is alert and oriented x3 and is not in distress. Patient was treated for nausea and vomiting, also treated for pain and also given antacids and normal saline 1 L IV bolus x1. Lab test results were reviewed and showed acute leukocytosis of 12,200, AST of 67 and hyperglycemia of 108 mg/dL. The rest of the lab test results were nonactionable. On reevaluation, patient nausea and vomiting and pain are well controlled with medications. Abdomen pelvis CT scan with contrast showed prominent right ovary which is nonspecific but may represent a ruptured cyst in the setting of free fluid. The gallbladder ultrasound - Differential Diagnosis Gastritis; GERD; Gastroenteritis; Cholelithiasis; UTI; Ovarian cyst ED Disposition Clinical Impression: Gastroenteritis, Acute epigastric pain, Viral gastroenteritis, Nausea and vomiting in adult Disposition: DC-01 TO HOME OR SELFCARE Is pt being admited?: No Does the pt Need Aspirin: No Condition: Stable Instructions: Gastroenteritis (ED), Gastroesophageal Reflux Disease (ED), Acute Nausea and Vomiting (ED), Abdominal Pain (ED) Additional Instructions: Maintain a clear liquid diet for the next 12 to 24 hours. Take medication with food, drink plenty fluids and follow-up with your primary care physician in 3 to 5 days for reevaluation. Return to the ED immediately if symptoms get worse. Prescriptions: Dicyclomine [Bentyl] 20 mg PO Q6H PRN #30 tablet PRN Reason: Pain , Severe (7-10) Famotidine [Pepcid] 20 mg PO Q12H #60 tablet Ondansetron [Zofran Odt] 4 mg PO Q6HR PRN #20 tab.rapdis PRN Reason: Nausea Referrals: PRIMARY CARE,MD [Primary Care Provider] - 3-5 Days Time of Disposition: 05:17 Print Language: COLOMBIAN <LAM REAVES - Last Filed: 12/11/19 08:16> ED Review of Systems ROS: Stated complaint: ABD PAIN Other details as noted in HPI ED Course Vital Signs 12/11/19 03:42 Temperature 98.0 F Pulse Rate 100 H Respiratory 18 Rate Blood Pressure 155/95 O2 Sat by Pulse 99 Oximetry ED Medical Decision Making - Lab Data Result diagrams: 12/11/19 04:01 12/11/19 04:01 - Radiology Data Radiology results: report reviewed [id number] Status:Finalized Findings [facility] [address] [place] [address] Ultrasound Report Signed Patient: RELL RHODES MR#: [id number] : 1995 Acct:[id number] Age/Sex: 24 / F ADM Date: 12/11/19 Loc: ED Attending Dr: Ordering Physician: RICK SAHU Date of Service: 12/11/19 Procedure(s): US abdomen limited Accession Number(s): [id number] cc: RICK SAHU ULTRASOUND ABDOMEN, LIMITED (RIGHT UPPER QUADRANT) INDICATION: Epigastric pain. COMPARISON: None available. FINDINGS: Pancreas: Visualized portion shows no significant abnormality. Liver: Normal. Gallbladder: Normal. Bile ducts: Normal. Common Bile Duct measures 2 mm. Free fluid: None. Additional Findings: None. IMPRESSION: Unremarkable limited abdominal ultrasound. Signer Name: Jovanny Hernandez MD Signed: 12/11/2019 7:29 AM Workstation Name: [id number] Transcribed By: ES Dictated By: Jovanny Hernandez MD Electronically Authenticated By: Jovanny Hernandez MD Signed Date/Time: 12/11/19728 DD/ 7 TD/TT: Critical care attestation.: If time is entered above; I have spent that time in minutes in the direct care of this critically ill patient, excluding procedure time.
--- NOTE | 2019-12-11 05:59 | Cat Scan Report ---
CT abdomen pelvis w con INDICATION: Abdominal pain. TECHNIQUE: All CT scans at this location are performed using the following dose modulation technique: Automated exposure control. CONTRAST: Omnipaque 300, 100 cc IV injection. COMPARISON: None available. CT ABDOMEN: The parenchymal organs are unremarkable in appearance. Negative for abdominal mass, fluid or inflammation. The bowel is not dilated or thickened. CT PELVIS: The uterus contains an IUD. The right ovary is large measuring 5.5 cm. Negative for pelvic fluid collection. A small amount of free fluid is noted deep within the pelvis. IMPRESSION: Prominent right ovary is nonspecific. This may represent a ruptured cyst in the setting o f free fluid. Signer Name: Jovanny Hernandez MD Signed: 12/11/2019 5:54 AM Workstation Name: [id number]
--- NOTE | 2019-12-11 07:33 | Ultrasound Report ---
ULTRASOUND ABDOMEN, LIMITED (RIGHT UPPER QUADRANT) INDICATION: Epigastric pain. COMPARISON: None available. FINDINGS: Pancreas: Visualized portion shows no significant abnormality. Liver: Normal. Gallbladder: Normal. Bile ducts: Normal. Common Bile Duct measures 2 mm. Free fluid: None. Additional Findings: None. IMPRESSION: Unremarkable limited abdominal ultrasound. Signer Name: Jovanny Hernandez MD Signed: 12/11/2019 7:29 AM Workstation Name: [id number]
== END 2019-12-11 08:16 | disposition home or self-care (01) ==
LOC: ED 03:41
DX: A08.4 Viral intestinal infection, unspecified (principal); R11.2 Nausea with vomiting, unspecified; R10.13 Epigastric pain; Z79.1 Long term (current) use of non-steroidal anti-inflammatories (NSAID); Z79.899 Other long term (current) drug therapy
CPT/HCPCS: 36415; 74177; 76705; 80053; 81001; 83690; 84703; 85025; 87086; 96374; 96375; 99284; J2270; J2405; J7030; Q9967

== ENCOUNTER 2019-12-12 03:49 | Emergency (ER) | payer SELFPAY ==
[2019-12-12] MEDS ORDERED: FAMOTIDINE 20 MG/2 ML INJ IV ONE (04:18)
[2019-12-12] MEDS ORDERED: SODIUM CHLORIDE 0.9% 1000 ML 1,000 ML IV ONE (04:19)
[2019-12-12] MEDS ORDERED: MORPHINE 4 MG/1 ML INJ IV ONE (04:19)
[2019-12-12] MEDS ORDERED: ONDANSETRON 4 MG/2 ML INJ IV ONE (04:19)
--- NOTE | 2019-12-12 04:33 | Emergency Department Report ---
ED Abdominal Pain HPI - General Chief Complaint: Abdominal Pain Stated Complaint: ABD PAIN Source: patient Mode of arrival: Ambulatory Limitations: No Limitations - History of Present Illness Initial Comments: Patient is a A0 24-year-old -[place]iber[place] female with no past medical history who presents to the ED with acute onset persistent severe diffuse abdominal pain with intractable nausea and vomiting for the last 2 days, worse in the last 2 hours. Patient states that she was asleep when she woke up suddenly with severe epigastric pain that radiates diffusely followed by intractable nausea and vomiting. Patient was initially evaluated for the same 2 days ago and was evaluated extensively with no acute findings. Patient was discharged home on pain medications and antiemetics but the patient stated that she did not have these medications filled at the pharmacy. Patient states that the pain and the nausea and vomiting have worsened in the last 2 hours. Patient denies diarrhea, fever, chills, dizziness, syncope, chest pain, shortness of breath, sore throat, dysuria, urinary frequency and urgency, vaginal bleeding, vaginal discharge, low back pain, cough or hematemesis or hematochezia. MD Complaint: abdominal pain, other (nausea and vomiting) -: Sudden, days(s) (2) Location: diffuse Radiation: none Migration to: no migration Severity: severe Severity scale (0 -10): 8 Quality: cramping, aching Consistency: constant Improves With: nothing Worsens With: vomiting Associated Symptoms: denies other symptoms, nausea, vomiting, anorexia. denies: diarrhea, fever, chills, constipation, dysuria, hematemesis, hematochezia, melena, syncope, other - Related Data Previous Rx's Medication Instructions Recorded Last Taken Type Ibuprofen [Motrin 800 MG tab] 800 mg PO TID PRN #30 tablet 08/30/18 Unknown Rx oxyCODONE /ACETAMINOPHEN [Percocet 1 - 2 tab PO Q4HR PRN #30 tablet 08/30/18 Unknown Rx 5/325 mg] Dicyclomine [Bentyl] 20 mg PO Q6H PRN #30 tablet 12/11/19 Unknown Rx Famotidine [Pepcid] 20 mg PO Q12H #60 tablet 12/11/19 Unknown Rx Ondansetron [Zofran Odt] 4 mg PO Q6HR PRN #20 tab.rapdis 12/11/19 Unknown Rx cephALEXin [Keflex] 500 mg PO Q8HR #30 cap 12/12/19 Unknown Rx Allergies Allergy/AdvReac Type Severity Reaction Status Date / Time No Known Allergies Allergy Unverified 04/24/13 23:34 ED Review of Systems ROS: Stated complaint: ABD PAIN Other details as noted in HPI Constitutional: denies: chills, fever Eyes: denies: eye pain, eye discharge, vision change ENT: denies: ear pain, throat pain Respiratory: denies: cough, shortness of breath, wheezing Cardiovascular: denies: chest pain, palpitations Endocrine: no symptoms reported Gastrointestinal: abdominal pain, nausea, vomiting. denies: diarrhea Genitourinary: denies: urgency, dysuria, discharge Musculoskeletal: denies: back pain, joint swelling, arthralgia Skin: denies: rash, lesions Neurological: denies: headache, weakness, paresthesias Psychiatric: denies: anxiety, depression Hematological/Lymphatic: denies: easy bleeding, easy bruising ED Past Medical Hx - Past Medical History Previous Medical History?: No Hx Hypertension: No Hx Heart Attack/AMI: No Hx Diabetes: No Hx Deep Vein Thrombosis: No Hx Liver Disease: No Hx Renal Disease: No Hx Sickle Cell Disease: No Hx Seizures: No Hx Asthma: No Hx COPD: No Hx HIV: No - Surgical History Past Surgical History?: No Hx Pacemaker: No Hx Internal Defibrillator: No - Social History Smoking Status: Never Smoker Substance Use Type: None - Medications Home Medications: Home Medications Medication Instructions Recorded Confirmed Last Taken Type Ibuprofen [Motrin 800 MG tab] 800 mg PO TID PRN #30 tablet 08/30/18 Unknown Rx oxyCODONE /ACETAMINOPHEN [Percocet 1 - 2 tab PO Q4HR PRN #30 tablet 08/30/18 Unknown Rx 5/325 mg] Dicyclomine [Bentyl] 20 mg PO Q6H PRN #30 tablet 12/11/19 Unknown Rx Famotidine [Pepcid] 20 mg PO Q12H #60 tablet 12/11/19 Unknown Rx Ondansetron [Zofran Odt] 4 mg PO Q6HR PRN #20 tab.rapdis 12/11/19 Unknown Rx cephALEXin [Keflex] 500 mg PO Q8HR #30 cap 12/12/19 Unknown Rx ED Physical Exam - General Limitations: No Limitations General appearance: alert, in no apparent distress - Head Head exam: Present: atraumatic, normocephalic, normal inspection - Eye Eye exam: Present: normal appearance, PERRL, EOMI Pupils: Present: normal accommodation - ENT ENT exam: Present: normal exam, normal orophraynx, mucous membranes moist, TM's normal bilaterally, normal external ear exam - Neck Neck exam: Present: normal inspection, full ROM - Respiratory Respiratory exam: Present: normal lung sounds bilaterally. Absent: respiratory distress, wheezes, rales, rhonchi, chest wall tenderness, accessory muscle use, prolonged expiratory - Cardiovascular Cardiovascular Exam: Present: regular rate, normal rhythm, normal heart sounds. Absent: systolic murmur, diastolic murmur, rubs, gallop - GI/Abdominal GI/Abdominal exam: Present: soft, tenderness (Palpable diffuse abdominal tenderness, no guarding or rebound), normal bowel sounds. Absent: guarding, rebound, hyperactive bowel sounds, hypoactive bowel sounds, organomegaly - Extremities Exam Extremities exam: Present: normal inspection, full ROM, normal capillary refill - Back Exam Back exam: Present: normal inspection, full ROM. Absent: tenderness, CVA tenderness (R), muscle spasm, paraspinal tenderness, vertebral tenderness - Neurological Exam Neurological exam: Present: alert, oriented X3, CN II-XII intact, normal gait, reflexes normal - Psychiatric Psychiatric exam: Present: normal affect, normal mood - Skin Skin exam: Present: warm, dry, intact, normal color. Absent: rash ED Course Vital Signs 12/12/19 12/12/19 03:58 04:31 Temperature 98.0 F Pulse Rate 71 Respiratory 14 18 Rate Blood Pressure 138/76 O2 Sat by Pulse 100 Oximetry ED Medical Decision Making - Lab Data Result diagrams: 12/12/19 04:26 12/12/19 04:26 - Medical Decision Making This is a A0 24-year-old -[place] female with no past medical history who presents to the ED with acute onset persistent severe diffuse abdominal pain with intractable nausea and vomiting for the last 2 days, worse in the last 2 hours. Patient states that she was asleep when she woke up suddenly with severe epigastric pain that radiates diffusely followed by intractable nausea and vomiting. Patient was initially evaluated for the same 2 days ago and was evaluated extensively with no acute findings. Patient was discharged home on pain medications and antiemetics but the patient stated that she did not have these medications filled at the pharmacy. Patient states that the pain and the nausea and vomiting have worsened in the last 2 hours. In the ED, patient is alert and oriented x3 and is not in distress but appears to be in pain. Patient was treated for pain, also received normal saline 1 L IV bolus, and also was treated with antiemetics for nausea and vomiting. On reevaluation, patient's pain is well controlled medications. Patient has not had any nausea or vomiting while in the ED and has been sleeping since being treated for pain and vomiting. Lab test results were reviewed and showed AST of 84 and ALT of 101. Urinalysis shows urinary tract infection. The rest of the lab test results are unremarkable and nonactionable. Patient had previously been given a prescription of Bentyl, Pepcid and Zofran but failed to have this filled at the pharmacy. Therefore the patient was advised to fill her prescriptions that were previously written, maintain a clear liquid diet for 12 to 24 hours and follow-up with her primary care physician in 3 to 5 days for reevaluation. Patient was also advised to return to the ED immediately if symptoms get worse. - Differential Diagnosis GERD; Gastritis; Gastroenteritis; UTI; Dehydration; Cholelithiasis Critical care attestation.: If time is entered above; I have spent that time in minutes in the direct care of this critically ill patient, excluding procedure time. ED Disposition Clinical Impression: Nausea and vomiting in adult, Gastroenteritis, Acute urinary tract infection Abdominal pain Qualifiers: Abdominal location: generalized Qualified Code(s): R10.84 - Generalized abdominal pain Disposition: TO HOME OR SELFCARE Is pt being admited?: No Does the pt Need Aspirin: No Condition: Stable Instructions: Gastroenteritis (ED), Acute Nausea and Vomiting (ED), Abdominal Pain (ED), Urinary Tract Infection in Women (ED) Additional Instructions: Maintain a clear liquid diet for 12 to 24 hours, take medications that were recently prescribed as needed for pain and for nausea and vomiting. Follow-up with your primary care physician in 3 to 5 days for reevaluation. Return to the ED immediately if symptoms get worse. Prescriptions: cephALEXin [Keflex] 500 mg PO Q8HR #30 cap Referrals: [facility] [Provider Group] - 3-5 Days Time of Disposition: 06:32 Print Language: BURKIN[place]
[2019-12-12 04:49] LABS: Basophils # (Auto) 0.1 K/mm3 (0.0-0.1); Basophils % (Auto) 1.1 % (0.0-1.8); Eosinophils # (Auto) 0.1 K/mm3 (0.0-0.4); Eosinophils % (Auto) 0.8 % (0.0-4.3); Hematocrit 36.5 % (30.3-42.9); Hemoglobin 11.8 gm/dl (10.1-14.3); Lymphocytes # (Auto) 2.3 K/mm3 (1.2-5.4); Lymphocytes % (Auto) 21.7 % (13.4-35.0); Mean Corpuscular HGB Conc 32 % (30-34); Mean Corpuscular Volume 83 fl (79-97); Monocytes # (Auto) 0.6 K/mm3 (0.0-0.8); Monocytes % (Auto) 5.6 % (0.0-7.3); Platelet Count 350 K/mm3 (140-440); Red Blood Count 4.38 M/mm3 (3.65-5.03); Red Cell Distribution Width 14.8 % (13.2-15.2)
[2019-12-12 04:59] LABS: Alanine Aminotransferase 101 units/L (7-56); Albumin 3.6 g/dL (3.9-5); BUN/Creatinine Ratio 7; Blood Urea Nitrogen 6 mg/dL (7-17); Calcium 9.5 mg/dL (8.4-10.2); Hemolysis Index 37
[2019-12-12 06:27] LABS: Bacteria,Urine 2+ /HPF (Negative); Bilirubin,Urine NEG (Negative); Blood,Urine NEG (Negative); Color,Urine Yellow (Yellow); Mucus,Urine FEW /HPF; Protein,Urine <15 mg/dL mg/dL (Negative); Urobilinogen,Urine < 2.0 mg/dL (<2.0)
[2019-12-12 06:57] VITALS: BP 139/98
== END 2019-12-12 06:59 | disposition home or self-care (01) ==
LOC: ED 03:49
DX: K52.9 Noninfective gastroenteritis and colitis, unspecified (principal); N39.0 Urinary tract infection, site not specified; R10.84 Generalized abdominal pain; R11.2 Nausea with vomiting, unspecified; Z79.1 Long term (current) use of non-steroidal anti-inflammatories (NSAID); Z79.899 Other long term (current) drug therapy
CPT/HCPCS: 36415; 80053; 81001; 83690; 84703; 85025; 87086; 96361; 96374; 96375; 99283; J2270; J2405; J7030

== ENCOUNTER 2022-04-14 20:10 | Emergency (ER) | payer SELFPAY ==
[2022-04-15] MEDS ORDERED: oxyCODONE /ACETAMINOPHEN 5-325MG TAB PO ONE (02:18)
[2022-04-15 02:40] LABS: Basophils % (Auto) 0.3 % (0.0-1.8); Eosinophils # (Auto) 0.1 K/mm3 (0.0-0.4); Hematocrit 32.5 % (30.3-42.9); Hemoglobin 10.8 gm/dl (10.1-14.3); Lymphocytes # (Auto) 1.7 K/mm3 (1.2-5.4); Mean Corpuscular HGB Conc 33 % (30-34); Mean Corpuscular Volume 91 fl (79-97); Monocytes # (Auto) 0.7 K/mm3 (0.0-0.8); Monocytes % (Auto) 7.1 % (0.0-7.3); Platelet Count 235 K/mm3 (140-440); Red Blood Count 3.59 M/mm3 (3.65-5.03); Red Cell Distribution Width 13.4 % (13.2-15.2)
[2022-04-15 02:56] LABS: Bacteria,Urine 1+ /HPF (Negative); Mucus,Urine 3+ /HPF
[2022-04-15 03:02] LABS: Color,Urine Dark Yellow (Yellow)
[2022-04-15 03:19] LABS: Alanine Aminotransferase 8 units/L (7-56); Albumin 3.7 g/dL (3.9-5); BUN/Creatinine Ratio 10; Blood Urea Nitrogen 8 mg/dL (7-17); Hemolysis Index 5
--- NOTE | 2022-04-15 06:14 | Emergency Department Report ---
ED Abdominal Pain HPI - General Chief Complaint: Abdominal Pain Stated Complaint: AB/BACK PAIN Time Seen by Provider: 04/15/22 01:06 Source: patient Mode of arrival: Ambulatory Limitations: No Limitations - History of Present Illness Initial Comments: 27-year-old female G1, P3 reports to the ER with complaints of abdominal pain with improving vaginal bleeding. Patient reports she had a medical on Wednesday in [place] in which she had to take several pills. Patient reports later that evening she started to have vaginal bleeding and since Wednesday has now started to slow up. Patient reports her pain is 6 out of 10. No dysuria noted. Patient reports the passing of 2 clots since the initial start of the vaginal bleeding. Patient reports she was 10 weeks 6 days . No other acute signs or symptoms reported. Severity scale (0 -10): 7 - Related Data Previous Rx's Medication Instructions Recorded Last Taken Type Ibuprofen [Motrin 800 MG tab] 800 mg PO TID PRN #30 tablet 08/30/18 Unknown Rx oxyCODONE /ACETAMINOPHEN [Percocet 1 - 2 tab PO Q4HR PRN #30 tablet 08/30/18 Unknown Rx 5/325 mg] Dicyclomine [Bentyl] 20 mg PO Q6H PRN #30 tablet 12/11/19 Unknown Rx Famotidine [Pepcid] 20 mg PO Q12H #60 tablet 12/11/19 Unknown Rx Ondansetron [Zofran Odt] 4 mg PO Q6HR PRN #20 tab.rapdis 12/11/19 Unknown Rx cephALEXin [Keflex] 500 mg PO Q8HR #30 cap 12/12/19 Unknown Rx Acetaminophen/Codeine [Tylenol 1 tab PO Q6H PRN 2 Days #8 tab 04/15/22 Unknown Rx /Codeine # 3 tab] Allergies Allergy/AdvReac Type Severity Reaction Status Date / Time No Known Allergies Allergy Unverified 04/24/13 23:34 ED Review of Systems ROS: Stated complaint: AB/BACK PAIN Other details as noted in HPI Comment: All other systems reviewed and negative Gastrointestinal: abdominal pain. denies: nausea, vomiting, diarrhea Genitourinary: abnormal menses ED Past Medical Hx - Past Medical History Previous Medical History?: No Hx Hypertension: No Hx Heart Attack/AMI: No Hx Diabetes: No Hx Deep Vein Thrombosis: No Hx Liver Disease: No Hx Renal Disease: No Hx Sickle Cell Disease: No Hx Seizures: No Hx Asthma: No Hx COPD: No Hx HIV: No - Surgical History Hx Pacemaker: No Hx Internal Defibrillator: No - Social History Smoking Status: Never Smoker Substance Use Type: None - Medications Home Medications: Home Medications Medication Instructions Recorded Confirmed Last Taken Type Ibuprofen [Motrin 800 MG tab] 800 mg PO TID PRN #30 tablet 08/30/18 Unknown Rx oxyCODONE /ACETAMINOPHEN [Percocet 1 - 2 tab PO Q4HR PRN #30 tablet 08/30/18 Unknown Rx 5/325 mg] Dicyclomine [Bentyl] 20 mg PO Q6H PRN #30 tablet 12/11/19 Unknown Rx Famotidine [Pepcid] 20 mg PO Q12H #60 tablet 12/11/19 Unknown Rx Ondansetron [Zofran Odt] 4 mg PO Q6HR PRN #20 tab.rapdis 12/11/19 Unknown Rx cephALEXin [Keflex] 500 mg PO Q8HR #30 cap 12/12/19 Unknown Rx Acetaminophen/Codeine [Tylenol 1 tab PO Q6H PRN 2 Days #8 tab 04/15/22 Unknown Rx /Codeine # 3 tab] ED Physical Exam - General Limitations: No Limitations General appearance: alert, in no apparent distress - Head Head exam: Present: atraumatic, normocephalic - Eye Eye exam: Present: normal appearance - ENT ENT exam: Present: mucous membranes moist - Neck Neck exam: Present: normal inspection - Respiratory Respiratory exam: Present: normal lung sounds bilaterally. Absent: respiratory distress - Cardiovascular Cardiovascular Exam: Present: regular rate, normal rhythm. Absent: systolic mur mur, diastolic murmur, rubs, gallop - GI/Abdominal GI/Abdominal exam: Present: soft, tenderness (Suprapubic area), normal bowel sounds. Absent: distended, guarding, rebound, rigid - Extremities Exam Extremities exam: Present: normal inspection - Back Exam Back exam: Present: normal inspection - Neurological Exam Neurological exam: Present: alert, oriented X3 - Psychiatric Psychiatric exam: Present: normal affect, normal mood - Skin Skin exam: Present: warm, dry, intact, normal color. Absent: rash ED Course Vital Signs 04/14/22 04/15/22 20:41 02:15 Temperature 98.1 F Pulse Rate 106 H 87 Respiratory 18 12 Rate Blood Pressure 108/63 134/83 [Right] O2 Sat by Pulse 99 100 Oximetry ED Medical Decision Making - Lab Data Result diagrams: 04/15/22 02:23 04/15/22 02:23 - Radiology Data [facility] [address] [place] [address] Ultrasound Report Signed Patient: RELL RHODES MR#: [id number] : 1995 Acct:[id number] Age/Sex: 27 / F ADM Date: 04/14/22 Loc: ED Attending Dr: Ordering Physician: BRUNO RUIZ NP Date of Service: 04/15/22 Procedure(s): US OB <= 14 weeks fetus Accession Number(s): [id number] cc: BRUNO RUIZ NP EARLY OBSTETRICAL ULTRASOUND INDICATION: vaginal bleeding with pelvic pain COMPARISON: None pertinent available TECHNIQUE: Transabdominal FINDINGS: Retroverted uterus is seen measuring 10.8 x 5.7 x 7.3 cm. Endometrial stripe measures 10 mm. No definite gestational sac is identified. Intrauterine is not confirmed. Right ovary measures 3.0 cm in length and shows no abnormalities. Blood flow is noted. Left ovary measures 4.7 cm in length and shows no focal abnormalities. Blood flow is noted. No adnexal masses are seen. No free fluid is noted. IMPRESSION: Intrauterine is not confirmed though possibly is just too early. I cannot exclude ectopic but do not see strong evidence of that process. Signer Name: Matias Miranda MD Signed: 04/15/2022 7:21 AM Workstation Name: [id number] Transcribed By: GJ Dictated By: Matias Miranda MD Electronically Authenticated By: Matias Miranda MD Signed Date/Time: 04/15/22720 DD/ 8 TD/TT: - Medical Decision Making Vital Signs 04/14/22 04/15/22 20:41 02:15 Temperature 98.1 F Pulse Rate 106 H 87 Respiratory 18 12 Rate Blood Pressure 108/63 134/83 [Right] O2 Sat by Pulse 99 100 Oximetry Lab Results 04/15/22 04/15/22 04/15/22 Range/Units 02:23 02:23 02:23 WBC 10.1 (4.5-11.0) K/mm3 RBC 3.59 L (3.65-5.03) M/mm3 Hgb 10.8 (10.1-14.3) gm/dl Hct 32.5 (30.3-42.9) % MCV 91 (79-97) fl MCH 30 (28-32) pg MCHC 33 (30-34) % RDW 13.4 (13.2-15.2) % Plt Count 235 (140-440) K/mm3 Lymph % (Auto) 17.0 (13.4-35.0) % [place] % (Auto) 7.1 (0.0-7.3) % Eos % (Auto) 1.0 (0.0-4.3) % Baso % (Auto) 0.3 (0.0-1.8) % Lymph # (Auto) 1.7 (1.2-5.4) K/mm3 [place] # (Auto) 0.7 (0.0-0.8) K/mm3 Eos # (Auto) 0.1 (0.0-0.4) K/mm3 Baso # (Auto) 0.0 (0.0-0.1) K/mm3 Seg Neutrophils % 74.6 H (40.0-70.0) % Seg Neutrophils # 7.6 (1.8-7.7) K/mm3 Sodium 139 (137-145) mmol/L Potassium 3.6 (3.6-5.0) mmol/L Chloride 102.5 (98-107) mmol/L Carbon Dioxide 28 (22-30) mmol/L Anion Gap 12 mmol/L BUN 8 (7-17) mg/dL Creatinine 0.8 (0.6-1.2) mg/dL Estimated GFR > 60 ml/min BUN/Creatinine Ratio 10 % Glucose 94 (65-100) mg/dL Calcium 9.0 (8.4-10.2) mg/dL Total Bilirubin < 0.20 (0.1-1.2) mg/dL AST 11 (5-40) units/L ALT 8 (7-56) units/L Alkaline Phosphatase 44 (35-129) units/L Total Protein 6.6 (6.3-8.2) g/dL Albumin 3.7 L (3.9-5) g/dL Albumin/Globulin Ratio 1.3 % HCG, Quant 4126 H (0-4) mIU/mL Urine Color (Yellow) Urine Turbidity (Clear) Specific Amanda (Man) (1.003-1.030) Ur Protein (Man) (Negative) mg/dL Ur Ketones (Man) (Negative) Ur Nitrite (Man) (Negative) Ur Reducing Substances Urine Bilirubin (Man) (Negative) Urine Ictotest Leukocyte Esterase (Man) (Negative) Urine WBC (Auto) (0.0-6.0) /HPF Urine RBC (Auto) (0.0-6.0) /HPF U Epithel Cells (Auto) (0-13.0) /HPF Urine Bacteria (Auto) (Negative) /HPF Urine RBC (Manual) (Negative) Urine Mucus /HPF Blood Type Antibody Screen 04/15/22 04/15/22 Range/Units 02:23 02:41 WBC (4.5-11.0) K/mm3 RBC (3.65-5.03) M/mm3 Hgb (10.1-14.3) gm/dl Hct (30.3-42.9) % MCV (79-97) fl MCH (28-32) pg MCHC (30-34) % RDW (13.2-15.2) % Plt Count (140-440) K/mm3 Lymph % (Auto) (13.4-35.0) % [place] % (Auto) (0.0-7.3) % Eos % (Auto) (0.0-4.3) % Baso % (Auto) (0.0-1.8) % Lymph # (Auto) (1.2-5.4) K/mm3 [place] # (Auto) (0.0-0.8) K/mm3 Eos # (Auto) (0.0-0.4) K/mm3 Baso # (Auto) (0.0-0.1) K/mm3 Seg Neutrophils % (40.0-70.0) % Seg Neutrophils # (1.8-7.7) K/mm3 Sodium (137-145) mmol/L Potassium (3.6-5.0) mmol/L Chloride (98-107) mmol/L Carbon Dioxide (22-30) mmol/L Anion Gap mmol/L BUN (7-17) mg/dL Creatinine (0.6-1.2) mg/dL Estimated GFR ml/min BUN/Creatinine Ratio % Glucose (65-100) mg/dL Calcium (8.4-10.2) mg/dL Total Bilirubin (0.1-1.2) mg/dL AST (5-40) units/L ALT (7-56) units/L Alkaline Phosphatase (35-129) units/L Total Protein (6.3-8.2) g/dL Albumin (3.9-5) g/dL Albumin/Globulin Ratio % HCG, Quant (0-4) mIU/mL Urine Color Dark yellow (Yellow) Urine Turbidity Clear (Clear) Specific Amanda (Man) 1.025 (1.003-1.030) Ur Protein (Man) 2+ (Negative) mg/dL Ur Ketones (Man) Negative (Negative) Ur Nitrite (Man) Negative (Negative) Ur Reducing Substances Not Reportable Urine Bilirubin (Man) Negative (Negative) Urine Ictotest Not Reportable Leukocyte Esterase (Man) Negative (Negative) Urine WBC (Auto) 65.0 H (0.0-6.0) /HPF Urine RBC (Auto) 14.0 (0.0-6.0) /HPF U Epithel Cells (Auto) 24.0 H (0-13.0) /HPF Urine Bacteria (Auto) 1+ (Negative) /HPF Urine RBC (Manual) 3+ (Negative) Urine Mucus 3+ /HPF Blood Type B POSITIVE Antibody Screen Negative Critical care attestation.: If time is entered above; I have spent that time in minutes in the direct care of this critically ill patient, excluding procedure time. ED Disposition Clinical Impression: Vaginal bleeding, Abdominal cramping Disposition: HOME / SELF CARE / HOMELESS Condition: Stable Instructions: Abdominal Pain, Adult, Abnormal Uterine Bleeding, Abdominal Pain (ED) Additional Instructions: Please follow-up with your [facility]. As well as your primary care provider. If symptoms are to get worse to report back to the ER. Prescriptions: Acetaminophen/Codeine [Tylenol /Codeine # 3 tab] 1 tab PO Q6H PRN 2 Days #8 tab PRN Reason: Pain , Severe (7-10)
--- NOTE | 2022-04-15 07:25 | Ultrasound Report ---
EARLY OBSTETRICAL ULTRASOUND INDICATION: vaginal bleeding with pelvic pain COMPARISON: None pertinent available TECHNIQUE: Transabdominal FINDINGS: Retroverted uterus is seen measuring 10.8 x 5.7 x 7.3 cm. Endometrial stripe measures 10 mm . No definite gestational sac is identified. Intrauterine is not confirmed. Right ovary measures 3.0 cm in length and shows no abnormalities. Blood flow is noted. Left ovary kecia sures 4.7 cm in length and shows no focal abnormalities. Blood flow is noted. No adnexal masses are s een. No free fluid is noted. IMPRESSION: Intrauterine is not confirmed though possibly is just too early. I cannot exclu de ectopic but do not see strong evidence of that process. Signer Name: Matias Miranda MD Signed: 04/15/2022 7:21 AM Workstation Name: [id number]
[2022-04-15 08:10] VITALS: BP 120/67
== END 2022-04-15 08:23 | disposition home or self-care (01) ==
LOC: ED 20:10
DX: O20.8 Other hemorrhage in early pregnancy (principal); O26.891 Other specified pregnancy related conditions, first trimester; R10.30 Lower abdominal pain, unspecified; Z79.899 Other long term (current) drug therapy; Z3A.10 10 weeks gestation of pregnancy
CPT/HCPCS: 36415; 76801; 80053; 81001; 84702; 85025; 86850; 86900; 86901; 87086; 99284